=== PATIENT | female | born 1990 | race Caucasian/White ===

== ENCOUNTER 2016-06-12 04:59 | Emergency (ER) | payer OTHER ==
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
--- NOTE | 2016-06-12 06:43 | ED ORDER SUMMARY ---
..... Patient: DESIREE BORREGO OrderSheet [facility] VisitID: [id number] [place] [address] 25y, F Registration Date/Time: 06/12/2016 ORDER SHEET Weight: 65.7 kg Allergies: Sulfa Antibiotics GENERAL ORDERS: CT Head wo Cont Urgent (05:57 06/12/2016 Karin Martinez) (Ack 6:03 SRedmond) (6:14 SRedmond) Suture Set-up: (06:00 06/12/2016 Karin Martinez) (Ack 6:03 SRedmond) (6:03 SRedmond) MEDICATION ORDERS: Lidocaine Injection 1% (NOW, place at bedside, with syringes & needles) (05:59 06/12/2016 Karin Martinez) (6:05 TBowen R.N.) Wcglztg-Atrbbp-Eqkmy Pertussis IM 0.5 mL (NOW) (06:08 06/12/2016 TBcari R.N. verbal order read back to Karin Martinez) (6:09 TBowen R.N.) Hydrocodone-APAP PO 5/325 mg (NOW, HIGH ALERT MEDICATION) (06:48 06/12/2016 Karin Martinez) (6:58 TBowmaximilian R.N.) IV FLUIDS: ORDER SHEET NOTES: [Electronically signed by Gallo Oscar Dr. (06:44 06/12/2016)] [Electronically signed by Sharon Manley R.N. (07:00 06/12/2016)] [Electronically locked/signed by Sharon Manley R.N. (07:00 06/12/2016)]
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
--- NOTE | 2016-06-12 06:43 | ED ORDER SUMMARY ---
..... Patient: DESIREE BORREGO OrderSheet [facility] VisitID: [id number] [place] [address] 25y, F Registration Date/Time: 06/12/2016 ORDER SHEET Weight: 65.7 kg Allergies: Sulfa Antibiotics GENERAL ORDERS: CT Head wo Cont Urgent (05:57 06/12/2016 Karin Martinez) (Ack 6:03 SRedmond) (6:14 SRedmond) Suture Set-up: (06:00 06/12/2016 Karin Martinez) (Ack 6:03 SRedmond) (6:03 SRedmond) MEDICATION ORDERS: Lidocaine Injection 1% (NOW, place at bedside, with syringes & needles) (05:59 06/12/2016 Karin Martinez) (6:05 TBowen R.N.) Mryswqz-Ipbyki-Qnmhn Pertussis IM 0.5 mL (NOW) (06:08 06/12/2016 TBcari R.N. verbal order read back to Karin Martinez) (6:09 TBowen R.N.) Hydrocodone-APAP PO 5/325 mg (NOW, HIGH ALERT MEDICATION) (06:48 06/12/2016 Karin Martinez) (6:58 TBowmaximilian R.N.) IV FLUIDS: ORDER SHEET NOTES: [Electronically signed by Gallo Oscar Dr. (06:44 06/12/2016)] [Electronically signed by Sharon Manley R.N. (07:00 06/12/2016)] [Electronically locked/signed by Sharon Manley R.N. (07:00 06/12/2016)]
--- NOTE | 2016-06-12 07:00 | ED DISCHARGE INSTRUCTIONS ---
Patient: DESIREE BORREGO General Instructions [facility] VisitID: [id number] [place] [address] 25y, F Registration Date/Time: 06/12/2016 Multiple deep lacerations to the forehead and lower lip. Complicated repair. No foreign body present. Concussion. Loss of consciousness of unknown duration. INSTRUCTIONS Apply ice for 20 minutes four times a day until better. Don't apply ice directly to skin. Protect wound and keep wound area clean. Change dressing twice daily. You may wash wounds briefly, then dry. Apply bacitracin twice daily. Sutures/ivdal should be removed in five days. Warnings: HEAD INJURY PRECAUTIONS: An observer must check on the patient frequently for the next 24 hours to confirm that the patient responds as expected, is not confused, has no new weakness or numbness, and has no other problems. TETANUS: You were given a tetanus shot during your visit. Make a note for future reference. Follow-up: Follow up with your doctor in five days. Call for an appointment. Screening today revealed the patient's blood pressure to be in the pre-hypertensive range. The patient should follow up with a primary care provider for blood pressure management. ADDITIONAL INFORMATION Laceration, Face (Suture Or Tape) Alaceration is a cut through the skin. This will require stitches if it is deep. Minor cuts may be treated with surgical tape. Home care The following guidelines will help you care for your laceration at home: If a bandage was applied and it becomes wet or dirty, replace it. Otherwise, leave it in place for the first 24 hours, then change it once a day or as directed. If sutures were used, clean the wound daily: After removing the bandage, wash the area with soap and water. Use a wet cotton swab to loosen and remove any blood or crust that forms. After cleaning, keep the wound clean and dry. Talk with your doctor before applying any antibiotic ointment to the wound. Reapply a fresh bandage. You may remove the bandage to shower as usual after the first 24 hours, but do not soak the area in water (no swimming) until the sutures are removed. If surgical tape was used, keep the area clean and dry. If it becomes wet, blot it dry with a towel. The doctor may prescribe an antibiotic cream or ointment to prevent infection. Do not stop taking this medication until you have have finished the prescribed course or the doctor tells you to stop. The doctor may also prescribe medications for pain. Follow the doctor's instructions for taking these medications.If you have chronic liver or kidney disease or ever had a stomach ulcer or GI bleeding, talk with your doctor before using these medicines. Follow-up care Follow up with your health care provider. Most facial cuts heal in five days with no problem. However, even with proper treatment, a wound infection sometimes occurs. Therefore, check the wound daily for the warning signs listed below. Stitches should not be left in the face for more thanfivedays; otherwise, permanent stitch magallanes may form. If surgical tape closures were used, you may remove them yourself afterfivedays, if they have not fallen off by then. When to seek medical care Get prompt medical attention if any of these occur: Increasing pain in the wound Redness, swelling, or pus coming from the wound If sutures come apart or fall out before 5 days If the surgical tape closures fall off before 5 days, or the wound edges reopen Fever of 100.4F (38C) or higher, or as directed by your health care provider Bleeding not controlled by direct pressure Laceration, Lip and Mouth Alaceration is a cut through the skin. When the cut is on the outside of the lip, it may be closed with stitches, surgical tape, or sometimes skin glue. Cuts inside the mouth may be sutured or left open, depending on the size. When stitches are used in the mouth, they are usually the kind that dissolve. Home care The following guidelines will help you care for your laceration at home: Eat soft foods to reduce pain when chewing. If the cut isinsideyour mouth, clean the wound by rinsing your mouth after each meal and at bedtime with a mixture of equal parts water and hydrogen peroxide (do not swallow!). Or, you can use a cotton swab to apply hydrogen peroxide directly onto the cut. Mouth wounds can be painful when eating. You may use a local, [id number] numbing solution for pain relief. If this is not available, you may use any numbing solution for teething babies. You may apply this directly to the sores with a cotton-tip swab or with your finger. If the cut is on theoutsideof the lip and sutures were used, you may shower as usual after the first 24 hours, but do not put your head under water until the sutures are removed. After removing the bandage, wash the area with soap and water. Use a wet cotton swab to loosen and remove any blood or crust that forms. After cleaning, keep the wound clean and dry. Talk with your doctor before applying any antibiotic ointment to the wound. You may apply an adhesive bandage or leave the wound open. If surgical tape was used, keep the area clean and dry. If it becomes wet, blot it dry with a towel. Talk with your doctor before applying any antibiotic ointment to the wound. The surgical tape closures will usually fall off after about 5 days. If skin glue was used, do not scratch, rub, or pick at the adhesive film. Do not place tape directly over the film.Do not apply liquid, ointment, or creams to the wound while the film is inplace.Do not clean the wound with peroxide and do not apply ointment. Avoid activities that cause heavy sweating until the film has fallen off. Protect the wound from prolonged exposure to sunlight or tanning lamps. You may shower as usual but do not soak the wound in water (no swimming). If you were given an antibiotic to prevent infection, do not stop taking this medication until you have finished the prescribed course or the doctor tells you to stop. The doctor may prescribe medications for pain. Follow the doctor's instructions for taking these medications.If you have chronic liver or kidney disease or ever had a stomach ulcer or GI bleeding, talk with your doctor before using these medicines. Follow-up care Follow up with your health care provider. Cuts in and around the mouth heal in about five days. However, even with proper treatment, a wound infection sometimes occurs. Therefore, check the wound daily for the warning signs listed below. Stitches should not be left in the face for more thanfivedays; otherwise, permanent stitch magallanes may form. Unless told otherwise, you may remove surgical tape closures yourself afterfive days, if they have not already fallen off. Ifskin glue was used, the film will fall off by itself in 510 days. When to seek medical care Get prompt medical attention if any of these occur: Increasing pain in the wound Fever of 100.4F (38C) or higher, or as directed by your health care provider Redness, swelling, or pus coming from the wound If sutures come apart or fall out or if surgical tape falls off before three days If the wound edges reopen Bleeding not controlled by direct pressure Head Injury, No Wake-Up (Adult) You have had a head injury. It does not appear serious at this time. Symptoms of a more serious problem (concussion, bruising, or bleeding in the brain) may appear later. Therefore, watch for the WARNING SIGNS listed below. Home Care: Your healthcare provider will tell you whether its okay to drive. If so, you can drive yourself home. For the next day or so, be careful when driving or using heavy machinery until you are sure you have no delayed symptoms. During the next 24 hours someone must stay with you to check for the signs below. It is not necessary to stay awake or be awakened during the night. If you have swelling of the face or scalp, apply an ice pack (ice cubes in a plastic bag, wrapped in a towel) for 20 minutes. Do this every 1-2 hours until the swelling starts to go down. Do not use aspirin or ibuprofen (Motrin, Advil) after a head injury.You may use acetaminophen (Tylenol)to control pain, unless another pain medicine was prescribed. [NOTE: If you have chronic liver or kidney disease or ever had a stomach ulcer or GI bleeding, talk with your doctor before using these medicines.] For the next 24 hours: Do not take alcohol, sedatives or medicines that make you sleepy. Avoid strenuous activities. No lifting or straining. If you have had any symptoms of a concussion today (nausea, vomiting, dizziness, confusion, headache, memory loss or if you were knocked out), do not return to sports or any activity that could result in another head injury until all symptoms are gone and you have been cleared by your doctor. A second head injury before fully recovering from the first one can lead to serious brain injury. Follow Up with your doctor if symptoms are not improving after 24 hours, or as directed. [NOTE: A radiologist will review any X-rays or CT scans that were taken. We will notify you of any new findings that may affect your care.] Get Prompt Medical Attention if any of the followingWARNING SIGNS occur: Repeated vomiting Severe or worsening headache or dizziness Unusual drowsiness, or unable to awaken as usual Confusion or change in behavior or speech, memory loss, blurred vision Convulsion (seizure) Increasing scalp or face swelling Redness, warmth or pus from the swollen area Fluid drainage or bleeding from the nose or ears Diphtheria Toxoid Adsorbed, Pertussis Vaccine, Acellular (Adsorbed), Tetanus Toxoid, Adsorbed Suspension for injection What is this medicine? DIPHTHERIA and TETANUS TOXOIDS; PERTUSSIS VACCINE (dif THEER ee uh and TET n us TOK soids; per TUS iss vak SEEN) is used to prevent diphtheria, tetanus, and pertussis infections. How should I use this medicine? This vaccine is for injection into a muscle. It is given by a health healthcare corporate account director. A copy of Vaccine Information Statements will be given before each vaccination. Read this sheet carefully each time. The sheet may change frequently. Talk to your warehouse engineer regarding the use of this vaccine in children. While the DTP vaccine may be given to children ages 6 weeks to 7 years and the Tdap vaccine may be given to children at least 10 years old, precautions do apply. What side effects may I notice from receiving this medicine? Side effects that you should report to your doctor or health healthcare corporate account director as soon as possible: allergic reactions like skin rash, itching or hives, swelling of the face, lips, or tongue breathing problems fever of 103 degrees F or more flu-like symptoms inconsolable crying infection pain, tingling, numbness in the hands or feet seizures swelling of arm or leg that was injected unusually weak or tired Side effects that usually do not require immediate medical attention (report these side effects to your doctor or health healthcare corporate account director if they continue or are bothersome): fussy, irritable loss of appetite fever of 102 degrees F or less pain, tenderness, redness, swelling, or a 'knot' at site where injected vomiting What may interact with this medicine? immune globulin medicines that suppress your immune function like adalimumab, anakinra, infliximab medicines to treat cancer medicines that treat or prevent blood clots like warfarin, enoxaparin, and dalteparin steroid medicines like prednisone or cortisone What if I miss a dose? It is important not to miss your dose. Call your doctor or health healthcare corporate account director if you are unable to keep an appointment. Where should I keep my medicine? This drug is given in a hospital or clinic and will not be stored at home. What should I tell my health care provider before I take this medicine? They need to know if you have any of these conditions: blood disorders like hemophilia fever or infection immune system problems neurologic disease seizures an unusual or allergic reaction to vaccines, thimerosal, latex, other medicines, foods, dyes, or preservatives or trying to get breast-feeding What should I watch for while using this medicine? See your health care provider for all shots of this vaccine as directed. To have protection from infection, you must have 3 shots of this vaccine plus boosters as needed. Tell your doctor right away if you have any serious or unusual side effects after getting this vaccine. You have been given the following additional information: Laceration, Face (Suture Or Tape) Laceration, Lip/Mouth HEAD INJURY, No Wake-Up (Adult) Diphtheria Toxoid Adsorbed, Pertussis Vaccine, Acellular (Adsorbed), Tetanus Toxoid, Adsorbed Suspension for injection (Electronically signed by Gallo Oscar Dr. 06/12/2016 6:44)
--- NOTE | 2016-06-12 07:00 | ED MAR SUMMARY ---
..... Medication Administration Record [facility] [address] [place] [address] Patient: DESIREE BORREGO Visit ID: [id number] 25y, F Weight: 65.7 kg Height/Length: 66 in BMI: 23.4 ALLERGIES: Sulfa Antibiotics Given 06:05 06/12/2016 Ruth, R.N. Medication Administered: LIDOCAINE [INJECTION], Dose: 2 % Injection. Medication Ordered: Lidocaine Injection 1% (NOW, place at bedside, with syringes & needles). Given 06:09 06/12/2016 Ruth, R.N. Medication Administered: [id number] PERTUSSIS [IM], Dose: 0.5 mL IM. Medication Ordered: Mnwczzx-[place]-Odhtp Pertussis IM 0.5 mL (NOW). Given 06:58 06/12/2016 Ruth, R.N. Medication Administered: HYDROCODONE-APAP [PO] (HYDROCODONE-ACETAMINOPHEN), Dose: 1 tab 5/325 mg Tablets PO. Medication Ordered: Hydrocodone-APAP PO 5/325 mg (NOW, HIGH ALERT MEDICATION).
--- NOTE | 2016-06-12 07:00 | ED MED RECONCILIATION SUMMARY ---
Patient: DESIREE BORREGO Medication Reconciliation Report [facility] VisitID: [id number] [address] [place] [address] 25y, F Registration Date/Time: 06/12/2016 Weight: 65.7 kg Height/Length: 66 in. BMI: 23.4 ALLERGIES: Sulfa Antibiotics The patient's Home Medications are listed below: NONE. The source(s) of the original Home Medication information: Not obtained. The following Medications were given to the patient in the Emergency Department: Lidocaine [Injection] Injection 2 %, administered: 06/12/2016 6:05:00 AM [id number] PERTUSSIS [IM] IM 0.5 mL, administered: 06/12/2016 6:09:00 AM Hydrocodone-APAP [PO] PO 1 tab, administered: 06/12/2016 6:58:00 AM The following Medications were prescribed to the patient: None.
--- NOTE | 2016-06-12 07:00 | ED MAR SUMMARY ---
..... Medication Administration Record [facility] [address] [place] [address] Patient: DESIREE BORREGO Visit ID: [id number] 25y, F Weight: 65.7 kg Height/Length: 66 in BMI: 23.4 ALLERGIES: Sulfa Antibiotics Given 06:05 06/12/2016 Ruth, R.N. Medication Administered: LIDOCAINE [INJECTION], Dose: 2 % Injection. Medication Ordered: Lidocaine Injection 1% (NOW, place at bedside, with syringes & needles). Given 06:09 06/12/2016 Ruth, R.N. Medication Administered: [id number] PERTUSSIS [IM], Dose: 0.5 mL IM. Medication Ordered: Rihtzkr-Nvcxos-Jburw Pertussis IM 0.5 mL (NOW). Given 06:58 06/12/2016 Ruth, R.N. Medication Administered: HYDROCODONE-APAP [PO] (HYDROCODONE-ACETAMINOPHEN), Dose: 1 tab 5/325 mg Tablets PO. Medication Ordered: Hydrocodone-APAP PO 5/325 mg (NOW, HIGH ALERT MEDICATION).
--- NOTE | 2016-06-12 07:00 | ED MED RECONCILIATION SUMMARY ---
Patient: DESIREE BORREGO Medication Reconciliation Report [facility] VisitID: [id number] [address] [place] [address] 25y, F Registration Date/Time: 06/12/2016 Weight: 65.7 kg Height/Length: 66 in. BMI: 23.4 ALLERGIES: Sulfa Antibiotics The patient's Home Medications are listed below: NONE. The source(s) of the original Home Medication information: Not obtained. The following Medications were given to the patient in the Emergency Department: Lidocaine [Injection] Injection 2 %, administered: 06/12/2016 6:05:00 AM [id number] PERTUSSIS [IM] IM 0.5 mL, administered: 06/12/2016 6:09:00 AM Hydrocodone-APAP [PO] PO 1 tab, administered: 06/12/2016 6:58:00 AM The following Medications were prescribed to the patient: None.
== END 2016-06-12 07:00 | disposition home or self-care (01) ==
LOC: ED SRH 04:59
DX: S01.81XA Laceration without foreign body of other part of head, initial encounter (principal); S01.511A Laceration without foreign body of lip, initial encounter; S06.0X9A Concussion with loss of consciousness of unspecified duration, initial encounter; Y09 Assault by unspecified means; Y92.410 Unspecified street and highway as the place of occurrence of the external cause; Z88.2 Allergy status to sulfonamides